=== PATIENT | female | born 1985 | race Caucasian/White ===

== ENCOUNTER → 2020-07-28 13:59 | Outpatient (CLI) | payer BC ==
[2020-03-02 08:06] VITALS: BMI 41.6
[~2020-07-28 13:59] MED LIST: ASCORBIC ACID500 MG PO; FISH OIL 1,0001 CA1 PO; FLUTICASONE PRO16 GM; HYDROCODON-ACE1 EA10 PO; LISINOPRIL20 MG PO; OMEPRAZOLE20 M1 PO; SUDAFED 30 MG T30 MG PO; SYEDA 28 TABLE1 EACH PO; TRAZODONE HCL100 MG PO; VITAMIN B-1250 MCG PO; ZANAFLEX4 MG PO
--- NOTE | 2020-07-28 15:03 | NUR ---
TIME OUT PERFORMED @ 1440 USING 2 PT IDENTIFIERS, USED 12CC OF ARTHROGRAM COCKTAIL.
== END | disposition home or self-care (01) ==
LOC: D.RAD 13:59
PROVIDERS: ATTEND Clinical Nurse Specialist Family Health
DX: M25.511 Pain in right shoulder (principal)